=== PATIENT | female | born 1975 | race Caucasian/White ===

== ENCOUNTER 2017-09-27 00:51 | Emergency (ER) | payer MEDICAID ==
[~2017-09-27] VITALS: Ht 172.7 cm; Wt 63.6 kg
[~2017-09-27 00:51] MED LIST: CLON0.5T4 PO; HYDR-569 PO; IBUP-2264 PO; PER10325T PO
[2017-09-27 00:53] VITALS: BP 115/73
[2017-09-27] MEDS ORDERED: HYDROcodone/acetaminophen 10/325mg tab PO ONE (01:55)
[2017-09-27] MEDS ORDERED: IBUP-1984 PO (01:56)
[2017-09-27] MEDS ORDERED: HYDR-3965 PO (01:56)
== END 2017-09-27 02:31 | disposition home or self-care (01) ==
LOC: ER 00:52
DX: M25.532 Pain in left wrist (principal); Z98.890 Other specified postprocedural states; F12.10 Cannabis abuse, uncomplicated; Z88.1 Allergy status to other antibiotic agents; Z88.8 Allergy status to other drugs, medicaments and biological substances; X58.XXXA Exposure to other specified factors, initial encounter; Y93.89 Activity, other specified; Y92.89 Other specified places as the place of occurrence of the external cause; Y99.8 Other external cause status
CPT/HCPCS: 73110; 99284

== ENCOUNTER 2018-01-21 07:27 | Emergency (ER) | payer MEDICAID ==
[~2018-01-21] VITALS: Ht 167.6 cm; Wt 60.0 kg
[~2018-01-21 07:27] MED LIST changes: +CLON0.5T12 PO; -CLON0.5T4 PO
[2018-01-21 08:04] LABS: PREOP URINE HCG NEGATIVE (NEGATIVE)
[2018-01-21] MEDS ORDERED: normal saline 1000ML IV soln IV ONE (08:05)
[2018-01-21 08:11] LABS: CLARITY,URINE SLIGHTLY CLOUDY (Clear); COLOR,URINE YELLOW (Yellow); GLUCOSE, URINE NEGATIVE (Neg); KETONES,URINE NEGATIVE (Neg); LEUKOCYTE ESTERASE ,URINE TRACE (Neg); NITRITES, URINE NEGATIVE (Neg); OCCULT BLOOD,URINE NEGATIVE (Neg); PROTEIN,URINE TRACE mg/dl (Neg); UROBILINOGEN,URINE 0.2 E.U/dL (0.2-1.0)
[2018-01-21 08:22] VITALS: BP 114/79
[2018-01-21 08:23] LABS: BASOPHILS % (AUTO) 0.3 % (0-1); EOSINOPHILS # (AUTO) 0.1 X10'3 (0-0.9); EOSINOPHILS % (AUTO) 0.8 % (0-6); HEMATOCRIT 40.8 % (35.0-45.0); HEMOGLOBIN 13.9 g/dl (12.0-16.0); LYMPHOCYTES # (AUTO) 1.2 X10'3 (1.1-4.8); LYMPHOCYTES % (AUTO) 13.2 % (21-51); MEAN CORPUSCULAR HEMOGLOBIN 30.1 PG (27.0-31.0); MEAN CORPUSCULAR VOLUME 88.4 FL (78-98); MEAN PLATELET VOLUME 7.9 FL (7.4-10.4); MONOCYTES # (AUTO) 0.5 X10'3 (0-0.9); MONOCYTES % (AUTO) 5.5 % (2-12); NEUTROPHILS # (AUTO) 7.1 X10'3 (1.8-7.7); NEUTROPHILS % (AUTO) 80.2 % (42-75); PLATELET COUNT 254 X10'3 (140-440); RED BLOOD COUNT 4.62 X10'6 (4.20-5.60); RED CELL DISTRIBUTION WIDTH 14.1 % (11.5-14.5); WHITE BLOOD COUNT 8.8 X10'3 (4.5-11.0)
[2018-01-21 08:23] LABS: UA COLLECTION TYPE CLN CATCH MIDSTREAM
[2018-01-21 08:25] LABS: WBC,URINE 20-30 /HPF (0-4)
[2018-01-21 08:26] LABS: BACTERIA,URINE 2+ /HPF (Neg); MUCUS STRANDS MODERATE /LPF (Neg); RBC,URINE 0-2 /HPF (0-2); SQUAMOUS EPITHELIAL CELL,UR MANY /LPF (FEW); WBC CLUMPS,URINE FEW /HPF (NEGATIVE)
[2018-01-21 08:40] LABS: ALANINE AMINOTRANSFERASE 20 U/L (12-78); ALBUMIN 3.2 G/DL (3.4-5.0); ALBUMIN/GLOBULIN RATIO 0.9 (1.1-1.5); ALKALINE PHOSPHATASE 70 IU/L (46-116); ANION GAP 7 (8-16); ASPARTATE AMINO TRANSFERASE 12 U/L (10-37); BILIRUBIN,TOTAL 0.2 MG/DL (0.1-1.0); BLOOD UREA NITROGEN 6 MG/DL (7-18); CALCIUM 8.4 MG/DL (8.5-10.1); CHLORIDE 98 MMOL/L (99-107); CREATININE 0.75 MG/DL (0.40-0.90); GLUCOSE 107 MG/DL (70-104); MAGNESIUM 1.6 MG/DL (1.5-2.4); POTASSIUM 3.5 MMOL/L (3.5-5.1); SODIUM 134 MMOL/L (135-145); TOTAL PROTEIN 6.8 G/DL (6.4-8.2); eGFR 85 ML/MIN
[2018-01-21] MEDS ORDERED: HYDR-569 PO (10:14)
[2018-01-21] MEDS ORDERED: IBUP-1984 PO (10:14)
[2018-01-21] MEDS ORDERED: ONDA4TAB6 PO (10:14)
== END 2018-01-21 10:37 | disposition home or self-care (01) ==
LOC: ER 07:27
DX: B34.9 Viral infection, unspecified (principal); F12.90 Cannabis use, unspecified, uncomplicated; F15.90 Other stimulant use, unspecified, uncomplicated; Z88.1 Allergy status to other antibiotic agents; Z88.8 Allergy status to other drugs, medicaments and biological substances; Z79.899 Other long term (current) drug therapy; Z98.890 Other specified postprocedural states
CPT/HCPCS: 36415; 70450; 71045; 80053; 81001; 81025; 83605; 83735; 84145; 85025; 87040; 93005; 96360; 96361; 99285; J7030

== ENCOUNTER 2018-01-28 00:09 | Emergency (ER) | payer MEDICAID ==
[~2018-01-28] VITALS: Ht 167.6 cm; Wt 61.8 kg
[~2018-01-28 00:09] MED LIST changes: +IBUP-1984 PO; +ONDA4TAB6 PO
[2018-01-28] MEDS ORDERED: ondansetron/PF 4mg/2ml inj IV ONE (01:20)
[2018-01-28] MEDS ORDERED: morphine 4 MG/ML inj SYRINge IV ONE (01:20)
[2018-01-28] MEDS ORDERED: iohexol 350MG/ML 100ml bottle IV ONE (01:27)
[2018-01-28 01:49] LABS: BASOPHILS % (AUTO) 0.2 % (0-1); EOSINOPHILS # (AUTO) 0.2 X10'3 (0-0.9); EOSINOPHILS % (AUTO) 1.7 % (0-6); HEMATOCRIT 39.6 % (35.0-45.0); LYMPHOCYTES # (AUTO) 2.5 X10'3 (1.1-4.8); LYMPHOCYTES % (AUTO) 18.5 % (21-51); MEAN CORPUSCULAR HGB CONC 32.8 % (33.0-36.5); MEAN CORPUSCULAR VOLUME 88.2 FL (78-98); MEAN PLATELET VOLUME 7.6 FL (7.4-10.4); MONOCYTES # (AUTO) 0.6 X10'3 (0-0.9); MONOCYTES % (AUTO) 4.8 % (2-12); NEUTROPHILS # (AUTO) 10.2 X10'3 (1.8-7.7); NEUTROPHILS % (AUTO) 74.8 % (42-75); PLATELET COUNT 411 X10'3 (140-440); RED BLOOD COUNT 4.48 X10'6 (4.20-5.60); RED CELL DISTRIBUTION WIDTH 13.4 % (11.5-14.5); WHITE BLOOD COUNT 13.5 X10'3 (4.5-11.0)
[2018-01-28 02:00] LABS: ALANINE AMINOTRANSFERASE 23 U/L (12-78); ALBUMIN 3.4 G/DL (3.4-5.0); ALBUMIN/GLOBULIN RATIO 0.8 (1.1-1.5); ALKALINE PHOSPHATASE 99 IU/L (46-116); ANION GAP 4 (8-16); ASPARTATE AMINO TRANSFERASE 14 U/L (10-37); BILIRUBIN,TOTAL 0.2 MG/DL (0.1-1.0); BLOOD UREA NITROGEN 14 MG/DL (7-18); BUN/CREATININE RATIO 16.7 (6.6-38.0); CALCIUM 8.7 MG/DL (8.5-10.1); CHLORIDE 102 MMOL/L (99-107); CREATININE 0.84 MG/DL (0.40-0.90); GLUCOSE 88 MG/DL (70-104); POTASSIUM 3.9 MMOL/L (3.5-5.1); SODIUM 136 MMOL/L (135-145); TOTAL CARBON DIOXIDE 29.9 MMOL/L (24-32); TOTAL PROTEIN 7.6 G/DL (6.4-8.2); eGFR 75 ML/MIN
[2018-01-28 02:57] LABS: URINE HCG NEGATIVE (NEG)
[2018-01-28] MEDS ORDERED: amoxicillin 250mg capsule PO ONE (03:50)
[2018-01-28] MEDS ORDERED: HYDROcodone/acetaminophen 10/325mg tab PO ONE (03:50)
[2018-01-28] MEDS ORDERED: HYDR-565 PO (03:57)
[2018-01-28] MEDS ORDERED: AMOX500C2 PO (03:57)
[2018-01-28] MEDS ORDERED: IBUP-1986 PO (03:57)
[2018-01-28 04:05] VITALS: BP 122/79
[2018-01-29] MEDS ORDERED: AMOX-422 PO (18:14)
[2018-01-29] MEDS ORDERED: HYDR-565 PO (18:14)
[2018-01-29] MEDS ORDERED: CLIN300C3 PO (18:19)
== END 2018-01-28 04:07 | disposition home or self-care (01) ==
LOC: ER 00:10
DX: L03.211 Cellulitis of face (principal); K04.7 Periapical abscess without sinus; F12.90 Cannabis use, unspecified, uncomplicated; F15.90 Other stimulant use, unspecified, uncomplicated; F17.200 Nicotine dependence, unspecified, uncomplicated; Z98.890 Other specified postprocedural states; Z88.1 Allergy status to other antibiotic agents; Z88.8 Allergy status to other drugs, medicaments and biological substances
CPT/HCPCS: 36415; 70491; 80053; 81025; 83605; 84145; 85025; 87040; 96374; 96375; 99285; J2270; J2405; J7030; Q9967

== ENCOUNTER 2018-01-29 12:54 | Emergency (ER) | payer MEDICAID ==
[~2018-01-29] VITALS: Ht 167.6 cm; Wt 61.4 kg
[~2018-01-29 12:54] MED LIST changes: +AMOX500C2 PO; +HYDR-565 PO; +IBUP-1986 PO
[2018-01-29] MEDS ORDERED: HYDROcodone/acetaminophen 10/325mg tab PO ONE (13:25)
[2018-01-29] MEDS ORDERED: ondansetron/PF 4mg/2ml inj IV ONE (13:25)
[2018-01-29] MEDS ORDERED: morphine 4 MG/ML inj SYRINge IV ONE (13:25)
[2018-01-29] MEDS ORDERED: piperacillin/tazo 3.375gm/50ml 50 ML IV ONE (13:25)
[2018-01-29 13:54] LABS: BASOPHILS # (AUTO) 0.1 X10'3 (0-0.2); BASOPHILS % (AUTO) 0.5 % (0-1); EOSINOPHILS # (AUTO) 0.3 X10'3 (0-0.9); EOSINOPHILS % (AUTO) 2.2 % (0-6); HEMATOCRIT 35.8 % (35.0-45.0); HEMOGLOBIN 12.3 g/dl (12.0-16.0); LYMPHOCYTES # (AUTO) 1.9 X10'3 (1.1-4.8); LYMPHOCYTES % (AUTO) 15.3 % (21-51); MEAN CORPUSCULAR HEMOGLOBIN 30.3 PG (27.0-31.0); MEAN CORPUSCULAR HGB CONC 34.5 % (33.0-36.5); MEAN CORPUSCULAR VOLUME 87.7 FL (78-98); MEAN PLATELET VOLUME 7.3 FL (7.4-10.4); MONOCYTES # (AUTO) 0.5 X10'3 (0-0.9); MONOCYTES % (AUTO) 4.2 % (2-12); NEUTROPHILS # (AUTO) 9.8 X10'3 (1.8-7.7); NEUTROPHILS % (AUTO) 77.8 % (42-75); PLATELET COUNT 376 X10'3 (140-440); RED BLOOD COUNT 4.08 X10'6 (4.20-5.60); RED CELL DISTRIBUTION WIDTH 13.7 % (11.5-14.5); WHITE BLOOD COUNT 12.6 X10'3 (4.5-11.0)
[2018-01-29 14:09] LABS: ALANINE AMINOTRANSFERASE 19 U/L (12-78); ALBUMIN 3.2 G/DL (3.4-5.0); ALBUMIN/GLOBULIN RATIO 0.8 (1.1-1.5); ALKALINE PHOSPHATASE 83 IU/L (46-116); ANION GAP 8 (8-16); ASPARTATE AMINO TRANSFERASE 13 U/L (10-37); BILIRUBIN,TOTAL 0.2 MG/DL (0.1-1.0); BLOOD UREA NITROGEN 7 MG/DL (7-18); BUN/CREATININE RATIO 11.1 (6.6-38.0); CALCIUM 8.8 MG/DL (8.5-10.1); CHLORIDE 99 MMOL/L (99-107); CREATININE 0.63 MG/DL (0.40-0.90); GLUCOSE 98 MG/DL (70-104); POTASSIUM 3.8 MMOL/L (3.5-5.1); SODIUM 135 MMOL/L (135-145); TOTAL PROTEIN 7.2 G/DL (6.4-8.2); eGFR > 90 ML/MIN
[2018-01-29] MEDS ORDERED: iohexol 300mg/ml 100ml inj. ONE (14:27)
[2018-01-29] MEDS ORDERED: BUPIVAcaine/PF 2.5 mg/ml (0.25%) 30ml vial IJ ONE (16:50)
[2018-01-29] MEDS ORDERED: LIDOcaine 1.5% w/epinephrine 1:200,000 5ml ampul IJ ONE ×2 (16:50→18:30)
[2018-01-29] MEDS ORDERED: BUPIVAcaine 2.5mg/ml inj 50ml vial (contains preservative) IJ ONE (17:25)
[2018-01-29 17:26] VITALS: BP 114/76
[2018-01-29] MEDS ORDERED: HYDR-565 PO (18:14)
[2018-01-29] MEDS ORDERED: AMOX-422 PO (18:14)
[2018-01-29] MEDS ORDERED: CLIN300C3 PO (18:19)
== END 2018-01-29 18:50 | disposition home or self-care (01) ==
LOC: ER 12:54
DX: K04.7 Periapical abscess without sinus (principal); K02.9 Dental caries, unspecified; F12.90 Cannabis use, unspecified, uncomplicated; F15.90 Other stimulant use, unspecified, uncomplicated; F17.200 Nicotine dependence, unspecified, uncomplicated; Z98.890 Other specified postprocedural states; Z88.1 Allergy status to other antibiotic agents; Z88.8 Allergy status to other drugs, medicaments and biological substances
CPT/HCPCS: 36415; 41800; 70487; 80053; 85025; 96365; 96375; 99285; A6449; J2270; J2405; J3490; J7030; Q9967

== ENCOUNTER 2018-06-28 03:11 | Emergency (ER) | payer MEDICAID, OTHER ==
[~2018-06-28] VITALS: Ht 172.7 cm; Wt 60.0 kg
[~2018-06-28 03:11] MED LIST changes: -AMOX500C2 PO; +CLIN300C3 PO; +HYDR-4383 PO; -HYDR-565 PO; -HYDR-569 PO; -IBUP-1984 PO
[2018-06-28 03:13] VITALS: BP 121/74
[2018-06-28] MEDS ORDERED: ondansetron 4mg rapidly disintigrating tab PO ONE (03:55)
[2018-06-28] MEDS ORDERED: ketorolac trometh inj. 60 MG/2 ML VIAL IM ONE (03:55)
[2018-06-28] MEDS ORDERED: HYDROcodone/acetaminophen 5mg/325mg tablet PO ONE (03:55)
[2018-06-28] MEDS ORDERED: clindamycin 150mg capsule PO ONE (04:20)
[2018-06-28] MEDS ORDERED: CLIN150C8 PO (04:20)
== END 2018-06-28 04:32 | disposition home or self-care (01) ==
LOC: ER 03:11
DX: N75.1 Abscess of Bartholin's gland (principal); F12.90 Cannabis use, unspecified, uncomplicated; F15.90 Other stimulant use, unspecified, uncomplicated; Z88.1 Allergy status to other antibiotic agents; Z88.8 Allergy status to other drugs, medicaments and biological substances; Z79.899 Other long term (current) drug therapy
CPT/HCPCS: 56420; 96372; 99284; J1885

== ENCOUNTER 2019-01-14 07:59 | Emergency (ER) | payer MEDICAID ==
[~2019-01-14] VITALS: Ht 170.2 cm; Wt 59.1 kg
[~2019-01-14 07:59] MED LIST changes: +CLIN150C8 PO; -IBUP-2264 PO; +IBUP-2697 PO
[2019-01-14 08:08] VITALS: BP 138/80
[2019-01-14] MEDS ORDERED: HYDROcodone/acetaminophen 10/325mg tab PO ONE (08:25)
[2019-01-14] MEDS ORDERED: LIDOcaine 1% w/epiNEPHrine 1:200,000 30ml vial IM ONE (09:10)
[2019-01-14] MEDS ORDERED: HYDR-4353 PO (09:47)
[2019-01-14] MEDS ORDERED: AMOX-422 PO (09:47)
[2019-01-14] MEDS ORDERED: amox tr/potassium clavulanate 875/125mg TAB PO ONE (09:50)
== END 2019-01-14 09:58 | disposition home or self-care (01) ==
LOC: ER 08:00
DX: L02.611 Cutaneous abscess of right foot (principal); F17.200 Nicotine dependence, unspecified, uncomplicated; F12.90 Cannabis use, unspecified, uncomplicated; F15.90 Other stimulant use, unspecified, uncomplicated; Z98.890 Other specified postprocedural states; Z88.1 Allergy status to other antibiotic agents; Z88.8 Allergy status to other drugs, medicaments and biological substances; Z79.2 Long term (current) use of antibiotics; Z79.899 Other long term (current) drug therapy
CPT/HCPCS: 10060; 73630; 99283; 99284

== ENCOUNTER 2019-07-09 00:14 | Emergency (ER) | payer MEDICAID ==
[~2019-07-09] VITALS: Ht 172.7 cm; Wt 65.9 kg
[~2019-07-09 00:14] MED LIST changes: -CLON0.5T12 PO; +CLON0.5T4 PO
[2019-07-09] MEDS ORDERED: azithromycin 250mg tablet PO ONE (02:30)
[2019-07-09] MEDS ORDERED: oseltamivir phos 75mg capsule PO ONE (02:30)
[2019-07-09] MEDS ORDERED: TAM75C PO (02:41)
[2019-07-09] MEDS ORDERED: AZIT-63 PO (02:41)
[2019-07-09 03:04] VITALS: BP 125/80
== END 2019-07-09 03:05 | disposition home or self-care (01) ==
LOC: ER 00:15
DX: J32.9 Chronic sinusitis, unspecified (principal); J11.1 Influenza due to unidentified influenza virus with other respiratory manifestations; F12.90 Cannabis use, unspecified, uncomplicated; F15.90 Other stimulant use, unspecified, uncomplicated; Z98.890 Other specified postprocedural states; Z88.1 Allergy status to other antibiotic agents; Z88.8 Allergy status to other drugs, medicaments and biological substances; Z79.899 Other long term (current) drug therapy
CPT/HCPCS: 99283

== ENCOUNTER 2019-07-29 00:23 | Emergency (ER) | payer MEDICAID, OTHER ==
[~2019-07-29] VITALS: Ht 172.7 cm; Wt 63.6 kg
[~2019-07-29 00:23] MED LIST changes: +AZIT-63 PO
[2019-07-29] MEDS ORDERED: ondansetron 4mg/5ml UD cup PO ONE (01:20)
[2019-07-29] MEDS ORDERED: pseudoephedrine 30mg tablet PO ONE (01:20)
[2019-07-29] MEDS ORDERED: benzonatate 100mg capsule PO ONE (01:20)
[2019-07-29 02:12] VITALS: BP 127/78
[2019-07-29] MEDS ORDERED: BENZ-16 PO (02:26)
== END 2019-07-29 02:43 | disposition home or self-care (01) ==
LOC: ER 00:24
DX: J06.9 Acute upper respiratory infection, unspecified (principal); R05 Cough; M79.18 Myalgia, other site; F12.90 Cannabis use, unspecified, uncomplicated; F15.90 Other stimulant use, unspecified, uncomplicated; F17.200 Nicotine dependence, unspecified, uncomplicated; Z98.890 Other specified postprocedural states; Z88.1 Allergy status to other antibiotic agents; Z88.8 Allergy status to other drugs, medicaments and biological substances; Z79.2 Long term (current) use of antibiotics
CPT/HCPCS: 87502; 87503; 99284

== ENCOUNTER 2019-08-12 13:27 | Emergency (ER) | payer MEDICAID, OTHER ==
[~2019-08-12] VITALS: Ht 172.7 cm; Wt 63.6 kg
[~2019-08-12 13:27] MED LIST changes: -AZIT-63 PO; +BENZ-16 PO
[2019-08-12] MEDS ORDERED: HYDROcodone/acetaminophen 10/325mg tab PO STA (13:39)
[2019-08-12] MEDS ORDERED: CEPH-571 PO (15:11)
[2019-08-12] MEDS ORDERED: HYDROcodone/acetaminophen 5mg/325mg tablet PO ONE (15:15)
[2019-08-12] MEDS ORDERED: TETanus/Pertussis (Acell)/Diphther VAC/PF (Tdap-Adult) 0.5ml syringe IMVAC ONE (15:15)
[2019-08-12] MEDS ORDERED: NAPR-56 PO (15:48)
[2019-08-12 16:05] VITALS: BP 122/78
== END 2019-08-12 16:06 | disposition home or self-care (01) ==
LOC: ER 13:27
DX: S81.811A Laceration without foreign body, right lower leg, initial encounter (principal); W01.0XXA Fall on same level from slipping, tripping and stumbling without subsequent striking against object, initial encounter; Y93.89 Activity, other specified; Y92.89 Other specified places as the place of occurrence of the external cause; Y99.8 Other external cause status; Z85.41 Personal history of malignant neoplasm of cervix uteri; Z85.89 Personal history of malignant neoplasm of other organs and systems; Q89.9 Congenital malformation, unspecified; F12.90 Cannabis use, unspecified, uncomplicated; F15.10 Other stimulant abuse, uncomplicated; Z98.890 Other specified postprocedural states
CPT/HCPCS: 12001; 73590; 90471; 90715; 99283

== ENCOUNTER 2019-11-21 15:14 | Emergency (ER) | payer MEDICAID ==
[~2019-11-21] VITALS: Ht 170.2 cm; Wt 63.6 kg
[~2019-11-21 15:14] MED LIST changes: -BENZ-16 PO; +CEPH-571 PO
--- NOTE | 2019-11-21 16:36 | NUR ---
pt stated smoked meth and marijuana 2 days ago.
[2019-11-21] MEDS ORDERED: proCHLORperazine 10 MG/2 ml inj IV ONE (16:40)
[2019-11-21] MEDS ORDERED: normal saline 1000ML IV soln IVB ONE (16:40)
[2019-11-21] MEDS ORDERED: ketorolac trometh. 30mg/ml inj. IV ONE (16:40)
[2019-11-21] MEDS ORDERED: diphenhydrAMINE 50 mg/ml inj IV ONE (16:40)
[2019-11-21 18:05] VITALS: BP 94/54
== END 2019-11-21 19:26 | disposition home or self-care (01) ==
LOC: ER 15:17
DX: R51 Headache (principal); R42 Dizziness and giddiness; F12.90 Cannabis use, unspecified, uncomplicated; F15.90 Other stimulant use, unspecified, uncomplicated; Z98.890 Other specified postprocedural states; Z79.2 Long term (current) use of antibiotics; Z88.8 Allergy status to other drugs, medicaments and biological substances; Z79.899 Other long term (current) drug therapy
CPT/HCPCS: 93005; 96374; 96375; 99284; J0780; J1200; J1885; J7030

== ENCOUNTER 2019-11-23 17:17 | Emergency (ER) | payer MEDICAID ==
[~2019-11-23] VITALS: Ht 170.2 cm; Wt 64.5 kg
[2019-11-23] MEDS ORDERED: normal saline 1000ML IV soln IVB ONE ×2 (18:00→18:55)
[2019-11-23] MEDS ORDERED: metoclopramide 5 mg/ml inj IV ONE (18:00)
[2019-11-23] MEDS ORDERED: diphenhydrAMINE 50 mg/ml inj IV ONE (18:00)
[2019-11-23] MEDS ORDERED: ketorolac trometh. 30mg/ml inj. IV ONE (18:00)
[2019-11-23 18:32] LABS: BASOPHILS % (AUTO) 0.4 % (0-1); EOSINOPHILS # (AUTO) 0.1 X10'3 (0-0.9); EOSINOPHILS % (AUTO) 0.6 % (0-6); HEMATOCRIT 42.6 % (35.0-45.0); HEMOGLOBIN 14.5 g/dl (12.0-16.0); LYMPHOCYTES # (AUTO) 2.2 X10'3 (1.1-4.8); LYMPHOCYTES % (AUTO) 22.3 % (21-51); MEAN CORPUSCULAR HEMOGLOBIN 30.3 PG (27.0-31.0); MEAN CORPUSCULAR HGB CONC 34.1 g/dL (33.0-36.5); MEAN CORPUSCULAR VOLUME 89.1 FL (78-98); MEAN PLATELET VOLUME 7.8 FL (7.4-10.4); MONOCYTES # (AUTO) 0.3 X10'3 (0-0.9); MONOCYTES % (AUTO) 3.5 % (2-12); NEUTROPHILS # (AUTO) 7.1 X10'3 (1.8-7.7); NEUTROPHILS % (AUTO) 73.2 % (42-75); PLATELET COUNT 356 X10'3 (140-440); RED BLOOD COUNT 4.79 X10'6 (4.20-5.60); RED CELL DISTRIBUTION WIDTH 14.2 % (11.5-14.5); WHITE BLOOD COUNT 9.7 X10'3 (4.5-11.0)
[2019-11-23 18:38] LABS: ALANINE AMINOTRANSFERASE 17 U/L (12-78); ALBUMIN 3.4 G/DL (3.4-5.0); ALBUMIN/GLOBULIN RATIO 1.1 (1.1-1.5); ALKALINE PHOSPHATASE 78 IU/L (46-116); ANION GAP 7 (8-16); ASPARTATE AMINO TRANSFERASE 12 U/L (10-37); BILIRUBIN,TOTAL 0.2 MG/DL (0.1-1.0); BLOOD UREA NITROGEN 7 MG/DL (7-18); CALCIUM 7.9 MG/DL (8.5-10.1); CHLORIDE 107 MMOL/L (99-107); CREATININE 0.88 MG/DL (0.40-0.90); GLUCOSE 110 MG/DL (70-104); MAGNESIUM 1.8 MG/DL (1.5-2.4); POTASSIUM 4.3 MMOL/L (3.5-5.1); SODIUM 141 MMOL/L (135-145); TOTAL CARBON DIOXIDE 27.4 MMOL/L (24-32); TOTAL PROTEIN 6.5 G/DL (6.4-8.2); eGFR 70 ML/MIN
[2019-11-23] MEDS ORDERED: haloperidol lactate 5mg/ml inj IM ONE (18:50)
[2019-11-23] MEDS ORDERED: morphine 4 MG/ML inj SYRINge IV ONE (18:50)
[2019-11-23] MEDS ORDERED: proCHLORperazine 10 MG/2 ml inj IV ONE (18:50)
[2019-11-23 19:15] LABS: ETHANOL < 0.010 GM/DL (0.0-0.010)
--- NOTE | 2019-11-23 20:11 | NUR ---
up to the bathroom w/o problem
[2019-11-23 20:30] LABS: CLARITY,URINE SLIGHTLY CLOUDY (Clear); COLOR,URINE YELLOW (Yellow); GLUCOSE, URINE NEGATIVE (Neg); KETONES,URINE NEGATIVE (Neg); LEUKOCYTE ESTERASE ,URINE SMALL (Neg); NITRITES, URINE NEGATIVE (Neg); OCCULT BLOOD,URINE SMALL (Neg); PROTEIN,URINE NEGATIVE (Neg); UROBILINOGEN,URINE 0.2 E.U/dL (0.2-1.0)
[2019-11-23 20:31] LABS: UA COLLECTION TYPE NON-SPECIFIED; URINE HCG NEGATIVE (NEG)
[2019-11-23 20:34] LABS: RBC,URINE 0-2 /HPF (0-2); WBC,URINE 0-4 /HPF (0-4)
[2019-11-23 20:35] LABS: BACTERIA,URINE NONE SEEN /HPF (Neg); SQUAMOUS EPITHELIAL CELL,UR FEW /LPF (FEW)
[2019-11-23 20:43] LABS: URINE AMPHETAMINE SCREEN POSITIVE (Neg); URINE BARBITUATE SCREEN NEGATIVE (Neg); URINE BENZODIAZEPINES SCREEN NEGATIVE (Neg); URINE CANNABINOID SCREEN NEGATIVE (Neg); URINE COCAINE SCREEN NEGATIVE (Neg); URINE METHADONE SCREEN NEGATIVE (Neg); URINE OPIATE SCREEN POSITIVE (Neg); URINE PHENCYCLIDINE SCREEN NEGATIVE (Neg)
[2019-11-23 21:32] VITALS: BP 116/73
== END 2019-11-23 21:38 | disposition home or self-care (01) ==
LOC: ER 17:17
DX: G43.909 Migraine, unspecified, not intractable, without status migrainosus (principal); R42 Dizziness and giddiness; F19.10 Other psychoactive substance abuse, uncomplicated; F12.90 Cannabis use, unspecified, uncomplicated; F15.90 Other stimulant use, unspecified, uncomplicated; Z98.890 Other specified postprocedural states; Z88.1 Allergy status to other antibiotic agents; Z88.8 Allergy status to other drugs, medicaments and biological substances; Z79.2 Long term (current) use of antibiotics; Z79.899 Other long term (current) drug therapy
CPT/HCPCS: 36415; 80053; 80305; 80320; 81001; 81025; 83735; 85025; 87088; 93005; 96361; 96372; 96374; 96375; 99284; J0780; J1200; J1630; J1885; J2270; J2765; J7030; 96376

== ENCOUNTER 2020-02-04 00:22 | Emergency (ER) | payer MEDICAID ==
[~2020-02-04] VITALS: Ht 172.7 cm; Wt 63.6 kg
--- NOTE | 2020-02-04 01:03 | NUR ---
Breaking primary RN, pt is awaiting CT, blood and urine obtained
[2020-02-04 01:04] LABS: URINE HCG NEGATIVE (NEG)
[2020-02-04 01:05] LABS: BASOPHILS # (AUTO) 0.1 X10'3 (0-0.2); BASOPHILS % (AUTO) 0.7 % (0-1); CLARITY,URINE CLOUDY (Clear); COLOR,URINE YELLOW (Yellow); EOSINOPHILS # (AUTO) 0.1 X10'3 (0-0.9); EOSINOPHILS % (AUTO) 1.5 % (0-6); GLUCOSE, URINE NEGATIVE (Neg); HEMATOCRIT 38.1 % (35.0-45.0); HEMOGLOBIN 12.9 g/dl (12.0-16.0); KETONES,URINE NEGATIVE (Neg); LEUKOCYTE ESTERASE ,URINE TRACE (Neg); LYMPHOCYTES # (AUTO) 1.9 X10'3 (1.1-4.8); LYMPHOCYTES % (AUTO) 25.3 % (21-51); MEAN CORPUSCULAR HEMOGLOBIN 30.3 PG (27.0-31.0); MEAN CORPUSCULAR HGB CONC 33.7 g/dL (33.0-36.5); MEAN CORPUSCULAR VOLUME 89.9 FL (78-98); MEAN PLATELET VOLUME 7.7 FL (7.4-10.4); MONOCYTES # (AUTO) 0.4 X10'3 (0-0.9); MONOCYTES % (AUTO) 5.6 % (2-12); NEUTROPHILS # (AUTO) 5.1 X10'3 (1.8-7.7); NEUTROPHILS % (AUTO) 66.9 % (42-75); NITRITES, URINE POSITIVE (Neg); OCCULT BLOOD,URINE LARGE (Neg); PH,URINE 6.5 (4.8-8.0); PLATELET COUNT 244 X10'3 (140-440); PROTEIN,URINE 100 mg/dl (Neg); RED BLOOD COUNT 4.24 X10'6 (4.20-5.60); RED CELL DISTRIBUTION WIDTH 13.8 % (11.5-14.5); UROBILINOGEN,URINE 0.2 E.U/dL (0.2-1.0); WHITE BLOOD COUNT 7.7 X10'3 (4.5-11.0)
[2020-02-04 01:09] LABS: UA COLLECTION TYPE CLN CATCH MIDSTREAM
[2020-02-04 01:13] LABS: BACTERIA,URINE 1+ /HPF (Neg); SQUAMOUS EPITHELIAL CELL,UR MODERATE /LPF (FEW); WBC,URINE 20-30 /HPF (0-4)
[2020-02-04 01:14] LABS: ALANINE AMINOTRANSFERASE 16 U/L (12-78); ALKALINE PHOSPHATASE 66 IU/L (46-116); ANION GAP 7 (8-16); ASPARTATE AMINO TRANSFERASE 7 U/L (10-37); BILIRUBIN,TOTAL 0.1 MG/DL (0.1-1.0); BLOOD UREA NITROGEN 12 MG/DL (7-18); BUN/CREATININE RATIO 14.6 (6.6-38.0); CALCIUM 7.4 MG/DL (8.5-10.1); CHLORIDE 106 MMOL/L (99-107); CREATININE 0.82 MG/DL (0.40-0.90); GLUCOSE 101 MG/DL (70-104); LIPASE 74 U/L (73-393); SODIUM 139 MMOL/L (135-145); TOTAL CARBON DIOXIDE 26.3 MMOL/L (24-32); TOTAL PROTEIN 6.1 G/DL (6.4-8.2); eGFR 76 ML/MIN
[2020-02-04] MEDS ORDERED: CefTRIAXone/D5W-Rocephin 1gm 50 ML IV ONE (01:15)
[2020-02-04] MEDS ORDERED: CEPH500C5 PO (01:52)
[2020-02-04] MEDS ORDERED: ONDA8TAB13 PO (01:52)
[2020-02-04] MEDS ORDERED: ondansetron/PF 4mg/2ml inj IV ONE (01:55)
[2020-02-04] MEDS ORDERED: morphine 4 MG/ML inj SYRINge IV PRN (01:55)
[2020-02-04 02:02] VITALS: BP 121/7
[2020-02-04] MEDS ORDERED: ACET-3067 PO (02:09)
== END 2020-02-04 02:03 | disposition home or self-care (01) ==
LOC: ER 00:23
DX: N10 Acute pyelonephritis (principal); M54.5 Low back pain; R11.0 Nausea; F12.90 Cannabis use, unspecified, uncomplicated; F15.90 Other stimulant use, unspecified, uncomplicated; Z85.41 Personal history of malignant neoplasm of cervix uteri; Z98.890 Other specified postprocedural states; Z88.1 Allergy status to other antibiotic agents; Z88.8 Allergy status to other drugs, medicaments and biological substances; Z79.2 Long term (current) use of antibiotics; Z79.899 Other long term (current) drug therapy
CPT/HCPCS: 36415; 74176; 80053; 81001; 81025; 83690; 85025; 87077; 87088; 87186; 96365; 96375; 99284; J0696; J2270; J2405

== ENCOUNTER 2020-07-13 20:53 | Emergency (ER) | payer MEDICAID ==
[~2020-07-13] VITALS: Ht 172.7 cm; Wt 68.2 kg
[~2020-07-13 20:53] MED LIST changes: +ONDA8TAB13 PO
[2020-07-13 21:08] VITALS: BP 120/85
[2020-07-13] MEDS ORDERED: LIDOcaine 1% W/epiNEPHrine 1:200,000 10ml vial IJ ONE (21:55)
[2020-07-13] MEDS ORDERED: HYDROcodone/acetaminophen 5mg/325mg tablet PO ONE (22:50)
[2020-07-13] MEDS ORDERED: ondansetron 4mg rapidly disintigrating tab PO ONE (22:50)
[2020-07-13] MEDS ORDERED: BACDS PO (22:51)
[2020-07-13] MEDS ORDERED: ONDA4TAB6 PO (23:11)
[2020-07-13] MEDS ORDERED: HYDR-3965 PO (23:11)
== END 2020-07-13 23:28 | disposition home or self-care (01) ==
LOC: ER 20:54
DX: N75.0 Cyst of Bartholin's gland (principal); F12.90 Cannabis use, unspecified, uncomplicated; F15.90 Other stimulant use, unspecified, uncomplicated; Z87.410 Personal history of cervical dysplasia; Z88.1 Allergy status to other antibiotic agents; Z88.8 Allergy status to other drugs, medicaments and biological substances; Z79.2 Long term (current) use of antibiotics; Z79.899 Other long term (current) drug therapy
CPT/HCPCS: 56420; 99283; 99284

== ENCOUNTER 2020-07-20 17:44 | Emergency (ER) | payer MEDICAID ==
[~2020-07-20] VITALS: Ht 172.7 cm; Wt 68.2 kg
[~2020-07-20 17:44] MED LIST changes: +BACDS PO
[2020-07-20 18:03] VITALS: BP 121/82
== END 2020-07-20 20:03 | disposition left against medical advice (07) ==
LOC: ER 17:44
DX: Z48.00 Encounter for change or removal of nonsurgical wound dressing (principal); Z53.21 Procedure and treatment not carried out due to patient leaving prior to being seen by health care provider

== ENCOUNTER 2021-01-10 14:31 | Emergency (ER) | payer MEDICAID ==
[~2021-01-10] VITALS: Ht 172.7 cm; Wt 68.2 kg
[~2021-01-10 14:31] MED LIST changes: -BACDS PO
[2021-01-10 14:54] VITALS: BP 134/88
[2021-01-10] MEDS ORDERED: BENZ-38 PO (15:42)
[2021-01-10] MEDS ORDERED: DEXA4TAB67 PO (15:42)
[2021-01-10] MEDS ORDERED: ALBU6.7H9 INH (15:42)
== END 2021-01-10 16:00 | disposition home or self-care (01) ==
LOC: ER 14:31
DX: U07.1 COVID-19 (principal); R11.0 Nausea; R05 Cough; R06.02 Shortness of breath; R51.9 Headache, unspecified; F12.90 Cannabis use, unspecified, uncomplicated; F15.90 Other stimulant use, unspecified, uncomplicated; Z85.41 Personal history of malignant neoplasm of cervix uteri; Z98.890 Other specified postprocedural states; Z88.1 Allergy status to other antibiotic agents; Z88.8 Allergy status to other drugs, medicaments and biological substances; Z79.2 Long term (current) use of antibiotics; Z79.899 Other long term (current) drug therapy
CPT/HCPCS: 71045; 87635; 99284; C9803

== ENCOUNTER 2021-01-18 21:15 | Emergency (ER) | payer MEDICAID ==
[~2021-01-18] VITALS: Ht 172.7 cm; Wt 68.2 kg
[~2021-01-18 21:15] MED LIST changes: +ALBU6.7H9 INH; +BENZ-38 PO; +DEXA4TAB67 PO
[2021-01-18 21:30] VITALS: BP 116/93
[2021-01-18] MEDS ORDERED: dexamethasone 4mg tablet PO ONE (23:10)
[2021-01-18] MEDS ORDERED: azithromycin 250mg tablet PO ONE (23:25)
[2021-01-18] MEDS ORDERED: DEXA6TAB6 PO (23:30)
[2021-01-18] MEDS ORDERED: AZIT250T PO (23:30)
[2021-01-18] MEDS ORDERED: BENZ-16 PO (23:39)
[2021-01-18] MEDS ORDERED: benzonatate 100mg capsule PO ONE (23:40)
== END 2021-01-18 23:42 | disposition home or self-care (01) ==
LOC: ER 21:16
DX: U07.1 COVID-19 (principal); J18.9 Pneumonia, unspecified organism; R06.02 Shortness of breath; F12.90 Cannabis use, unspecified, uncomplicated; F15.90 Other stimulant use, unspecified, uncomplicated; Z85.41 Personal history of malignant neoplasm of cervix uteri; Z98.890 Other specified postprocedural states; Z88.1 Allergy status to other antibiotic agents; Z88.8 Allergy status to other drugs, medicaments and biological substances; Z79.2 Long term (current) use of antibiotics; Z79.899 Other long term (current) drug therapy
CPT/HCPCS: 71045; 99283

== ENCOUNTER 2021-09-05 16:50 | Emergency (ER) | payer MEDICAID ==
[~2021-09-05] VITALS: Ht 172.7 cm; Wt 65.9 kg
[~2021-09-05 16:50] MED LIST changes: -BENZ-38 PO; +DEXA6TAB6 PO
[2021-09-05 17:10] VITALS: BP 129/90
[2021-09-05] MEDS ORDERED: NAPR-56 PO (17:16)
[2021-09-05] MEDS ORDERED: CEPH250T PO (17:16)
== END 2021-09-05 17:29 | disposition home or self-care (01) ==
LOC: ER 16:50
DX: K04.7 Periapical abscess without sinus (principal); F12.90 Cannabis use, unspecified, uncomplicated; F15.90 Other stimulant use, unspecified, uncomplicated; Z87.410 Personal history of cervical dysplasia; Z98.890 Other specified postprocedural states; Z88.1 Allergy status to other antibiotic agents; Z88.8 Allergy status to other drugs, medicaments and biological substances; Z79.2 Long term (current) use of antibiotics; Z79.899 Other long term (current) drug therapy
CPT/HCPCS: 99283

== ENCOUNTER 2022-03-14 16:01 | Emergency (ER) | payer MEDICAID ==
[~2022-03-14] VITALS: Ht 172.7 cm; Wt 63.6 kg
[~2022-03-14 16:01] MED LIST changes: +ALBU6.7H14 INH; -ALBU6.7H9 INH
[2022-03-14 17:06] VITALS: BP 136/84
[2022-03-14] MEDS ORDERED: NAPR-56 PO (20:01)
[2022-03-14] MEDS ORDERED: DICL20GE TOP (20:01)
== END 2022-03-14 20:36 | disposition home or self-care (01) ==
LOC: ER 16:02
DX: M77.8 Other enthesopathies, not elsewhere classified (principal); F17.200 Nicotine dependence, unspecified, uncomplicated; F12.90 Cannabis use, unspecified, uncomplicated; F15.20 Other stimulant dependence, uncomplicated; Z88.1 Allergy status to other antibiotic agents; Z88.8 Allergy status to other drugs, medicaments and biological substances
CPT/HCPCS: 73080; 99283

== ENCOUNTER 2022-03-25 14:25 | Emergency (ER) | payer MEDICAID ==
[~2022-03-25] VITALS: Ht 172.7 cm; Wt 63.6 kg
[~2022-03-25 14:25] MED LIST changes: +DICL20GE TOP; +NAPR-56 PO
[2022-03-25 14:44] VITALS: BP 134/97
[2022-03-25] MEDS ORDERED: TETRAcaine 0.5% ophthalmic drops 15ml EACHEYE ONE (15:25)
[2022-03-25] MEDS ORDERED: moxifloxacin 0.5% ophthalmic drops 3ml LEFTEYE ONE (17:59)
== END 2022-03-25 18:19 | disposition home or self-care (01) ==
LOC: ER 14:26
DX: T15.02XA Foreign body in cornea, left eye, initial encounter (principal); H57.12 Ocular pain, left eye; F12.90 Cannabis use, unspecified, uncomplicated; F15.90 Other stimulant use, unspecified, uncomplicated; Z85.41 Personal history of malignant neoplasm of cervix uteri; Z98.890 Other specified postprocedural states; Z88.1 Allergy status to other antibiotic agents; Z88.8 Allergy status to other drugs, medicaments and biological substances; Z79.2 Long term (current) use of antibiotics; Z79.899 Other long term (current) drug therapy; X58.XXXA Exposure to other specified factors, initial encounter; Y93.89 Activity, other specified; Y92.89 Other specified places as the place of occurrence of the external cause; Y99.8 Other external cause status
CPT/HCPCS: 65220; 99284; J7040

== ENCOUNTER 2022-05-20 02:24 | Emergency (ER) | payer MEDICAID ==
[~2022-05-20] VITALS: Ht 172.7 cm; Wt 63.6 kg
[~2022-05-20 02:24] MED LIST changes: -NAPR-56 PO
[2022-05-20 02:43] VITALS: BP 130/84
== END 2022-05-20 06:10 | disposition left against medical advice (07) ==
LOC: ER 02:25
DX: M79.10 Myalgia, unspecified site (principal); Z53.21 Procedure and treatment not carried out due to patient leaving prior to being seen by health care provider

== ENCOUNTER 2022-08-06 05:56 | Emergency (ER) | payer MEDICAID ==
[~2022-08-06] VITALS: Ht 172.7 cm; Wt 63.6 kg
[2022-08-06 06:04] VITALS: BP 164/91
[2022-08-06] MEDS ORDERED: diphenhydrAMINE 25mg capsule PO ONE (08:30)
[2022-08-06 08:40] LABS: BASOPHILS % (AUTO) 0.4 % (0-1); EOSINOPHILS # (AUTO) 0.1 X10'3 (0-0.9); EOSINOPHILS % (AUTO) 0.7 % (0-6); HEMATOCRIT 38.9 % (35.0-45.0); HEMOGLOBIN 13.1 g/dl (12.0-16.0); LYMPHOCYTES % (AUTO) 29.4 % (21-51); MEAN CORPUSCULAR HEMOGLOBIN 29.8 PG (27.0-31.0); MEAN CORPUSCULAR HGB CONC 33.6 g/dL (33.0-36.5); MEAN CORPUSCULAR VOLUME 88.7 FL (78-98); MEAN PLATELET VOLUME 7.7 FL (7.4-10.4); MONOCYTES # (AUTO) 0.5 X10'3 (0-0.9); MONOCYTES % (AUTO) 6.5 % (2-12); NEUTROPHILS # (AUTO) 4.4 X10'3 (1.8-7.7); PLATELET COUNT 324 X10'3 (140-440); RED BLOOD COUNT 4.39 X10'6 (4.20-5.60); RED CELL DISTRIBUTION WIDTH 14.1 % (11.5-14.5); WHITE BLOOD COUNT 6.9 X10'3 (4.5-11.0)
[2022-08-06 09:10] LABS: ALANINE AMINOTRANSFERASE 18 U/L (12-78); ALBUMIN 3.8 G/DL (3.4-5.0); ALBUMIN/GLOBULIN RATIO 1.2 (1.1-1.5); ALKALINE PHOSPHATASE 68 IU/L (46-116); ANION GAP 6 (8-16); ASPARTATE AMINO TRANSFERASE 21 U/L (10-37); BILIRUBIN,TOTAL 0.4 MG/DL (0.1-1.0); BLOOD UREA NITROGEN 7 MG/DL (7-18); BUN/CREATININE RATIO 10.8 (6.6-38.0); CALCIUM 8.5 MG/DL (8.5-10.1); CHLORIDE 103 MMOL/L (99-107); CREATININE 0.65 MG/DL (0.40-0.90); GLUCOSE 109 MG/DL (70-104); SODIUM 137 MMOL/L (135-145); TOTAL CARBON DIOXIDE 28.3 MMOL/L (24-32); TOTAL PROTEIN 6.9 G/DL (6.4-8.2); eGFR > 90 ML/MIN
[2022-08-06 09:30] LABS: URINE HCG NEGATIVE (NEG)
[2022-08-06 09:33] LABS: CLARITY,URINE CLOUDY (Clear); COLOR,URINE YELLOW (Yellow); GLUCOSE, URINE NEGATIVE (Neg); KETONES,URINE NEGATIVE (Neg); LEUKOCYTE ESTERASE ,URINE NEGATIVE (Neg); NITRITES, URINE POSITIVE (Neg); OCCULT BLOOD,URINE NEGATIVE (Neg); PROTEIN,URINE NEGATIVE (Neg); UROBILINOGEN,URINE 0.2 E.U/dL (0.2-1.0)
[2022-08-06 09:38] LABS: UA COLLECTION TYPE CLN CATCH MIDSTREAM
[2022-08-06 09:39] LABS: BACTERIA,URINE 3+ /HPF (Neg); MUCUS STRANDS MODERATE /LPF (Neg); SQUAMOUS EPITHELIAL CELL,UR MANY /LPF (FEW)
[2022-08-06 09:40] LABS: HYALINE CASTS 0-3 /LPF (NEGATIVE); RBC,URINE 0-2 /HPF (0-2)
[2022-08-06] MEDS ORDERED: clobetasol propionate ointment 15gm TP STA (10:09)
[2022-08-06] MEDS ORDERED: nitrofuran monohydrate/nitrofuran macrocrysal 100 MG (MacroBID) capsule PO ONE (10:10)
[2022-08-06] MEDS ORDERED: NITR100C6 PO (10:12)
== END 2022-08-06 10:34 | disposition home or self-care (01) ==
LOC: ER 05:56
DX: R21 Rash and other nonspecific skin eruption (principal); N39.0 Urinary tract infection, site not specified; F12.10 Cannabis abuse, uncomplicated; F15.10 Other stimulant abuse, uncomplicated; Z88.1 Allergy status to other antibiotic agents; Z88.5 Allergy status to narcotic agent; Z79.899 Other long term (current) drug therapy; Z79.1 Long term (current) use of non-steroidal anti-inflammatories (NSAID); Z79.2 Long term (current) use of antibiotics
CPT/HCPCS: 36415; 80053; 81001; 81025; 83605; 83735; 84145; 85025; 99284; Q0163

== ENCOUNTER 2023-04-03 14:50 | Emergency (ER) | payer MEDICAID ==
[~2023-04-03] VITALS: Ht 172.7 cm; Wt 70.0 kg
[~2023-04-03 14:50] MED LIST changes: +CLIN-214 PO; -CLIN150C8 PO; +NITR100C6 PO
[2023-04-03 15:05] VITALS: BP 121/87; PULSE 115; RESP 18; TEMP 99; O2SAT 98
[2023-04-03 16:59] LABS: BASOPHILS # (AUTO) 0.1 X10'3 (0-0.2); BASOPHILS % (AUTO) 0.4 % (0-1); EOSINOPHILS % (AUTO) 0.3 % (0-6); HEMATOCRIT 43.9 % (35.0-45.0); HEMOGLOBIN 14.7 g/dl (12.0-16.0); LYMPHOCYTES # (AUTO) 1.2 X10'3 (1.1-4.8); LYMPHOCYTES % (AUTO) 8.1 % (21-51); MEAN CORPUSCULAR HGB CONC 33.5 g/dL (33.0-36.5); MEAN CORPUSCULAR VOLUME 89.4 FL (78-98); MEAN PLATELET VOLUME 7.7 FL (7.4-10.4); MONOCYTES # (AUTO) 0.8 X10'3 (0-0.9); MONOCYTES % (AUTO) 5.6 % (2-12); NEUTROPHILS # (AUTO) 12.6 X10'3 (1.8-7.7); NEUTROPHILS % (AUTO) 85.6 % (42-75); PLATELET COUNT 338 X10'3 (140-440); RED CELL DISTRIBUTION WIDTH 14.3 % (11.5-14.5); WHITE BLOOD COUNT 14.7 X10'3 (4.5-11.0)
[2023-04-03 17:11] LABS: BILIRUBIN,URINE NEGATIVE (Neg); CLARITY,URINE CLOUDY (Clear); COLOR,URINE YELLOW (Yellow); GLUCOSE, URINE NEGATIVE (Neg); KETONES,URINE NEGATIVE (Neg); LEUKOCYTE ESTERASE ,URINE MODERATE (Neg); NITRITES, URINE POSITIVE (Neg); OCCULT BLOOD,URINE SMALL (Neg); PROTEIN,URINE 100 mg/dl (Neg); UROBILINOGEN,URINE 0.2 E.U/dL (0.2-1.0)
[2023-04-03 17:13] LABS: ALANINE AMINOTRANSFERASE 22 U/L (12-78); ALBUMIN 3.8 G/DL (3.4-5.0); ALKALINE PHOSPHATASE 95 IU/L (46-116); AMYLASE 25 U/L (25-115); ANION GAP 7 (8-16); ASPARTATE AMINO TRANSFERASE 10 U/L (10-37); BILIRUBIN,TOTAL 0.8 MG/DL (0.1-1.0); BLOOD UREA NITROGEN 9 MG/DL (7-18); BUN/CREATININE RATIO 9.6 (10.0-20.0); CHLORIDE 97 MMOL/L (99-107); CREATININE 0.94 MG/DL (0.40-0.90); GLUCOSE 114 MG/DL (70-104); POTASSIUM 3.9 MMOL/L (3.5-5.1); SODIUM 132 MMOL/L (135-145); TOTAL CARBON DIOXIDE 27.6 MMOL/L (24-32); TOTAL PROTEIN 7.8 G/DL (6.4-8.2); eCRCL 75 ML/MIN; eGFR 64 ML/MIN
[2023-04-03 17:14] LABS: LIPASE 12 U/L (16-77)
[2023-04-03 17:17] LABS: UA COLLECTION TYPE CLN CATCH MIDSTREAM
[2023-04-03 17:18] LABS: SQUAMOUS EPITHELIAL CELL,UR MODERATE /LPF (FEW); WBC,URINE TNTC /HPF (0-4)
[2023-04-03 17:19] LABS: BACTERIA,URINE 1+ /HPF (Neg)
[2023-04-03 17:20] LABS: TRANSITIONAL EPI CELLS,URINE MODERATE /HPF; WBC CLUMPS,URINE MODERATE /HPF (NEGATIVE)
--- NOTE | 2023-04-03 19:09 | NUR ---
Attempted to move patient from room 18 to [facility] and explained to patient that there was not a nurse assigned to that section to monitor her. Patient became frustrated. I attempted to educate patient on the way in which the side rooms were utilized in this ER which is for the MD to exam the patient only. Patient stormed out and stated "thats fine, when i at home from sepsis I will make sure my daughter knows to norah you and this hospital". I then tried to acknowledge patient frustration but was unsuccessful.
[2023-04-03] MEDS ORDERED: morphine 4 MG/ML inj SYRINge IV ONE (19:20)
[2023-04-03] MEDS ORDERED: acetaminophen 325mg tablet PO ONE (19:20)
[2023-04-03] MEDS ORDERED: normal saline 1000ML IV soln IVB ONE (19:20)
[2023-04-03] MEDS ORDERED: ondansetron/PF 4mg/2ml inj IV ONE (19:20)
[2023-04-03] MEDS ORDERED: CefTRIAXone 2gm/D5W 50ml BAG 50 ML IV ONE (19:25)
[2023-04-03 19:36] LABS: ETHANOL < 10 MG/DL (<10)
== END 2023-04-03 20:04 | disposition left against medical advice (07) ==
LOC: ER 14:51
DX: N10 Acute pyelonephritis (principal); F12.10 Cannabis abuse, uncomplicated; F15.10 Other stimulant abuse, uncomplicated; Z88.1 Allergy status to other antibiotic agents; Z88.8 Allergy status to other drugs, medicaments and biological substances; Z79.899 Other long term (current) drug therapy
CPT/HCPCS: 36415; 71045; 80053; 80320; 81001; 82150; 83690; 84145; 85025; 87040; 87077; 87088; 87186; 99284

== ENCOUNTER 2024-03-31 23:15 | Inpatient (IN) | payer MEDICAID ==
[~2024-03-31] VITALS: Ht 172.7 cm; Wt 84.0 kg
[~2024-03-31 23:15] MED LIST changes: +ONDA-245 PO; -ONDA8TAB13 PO
[2024-03-31 23:57] LABS: ALBUMIN 3.8 G/DL (3.4-5.0); ANION GAP 7 (8-16); BLOOD UREA NITROGEN 9 MG/DL (7-18); BUN/CREATININE RATIO 11.1 (10.0-20.0); CALCIUM 8.6 MG/DL (8.5-10.1); CHLORIDE 101 MMOL/L (99-107); CREATININE 0.81 MG/DL (0.40-0.90); GLUCOSE 101 MG/DL (70-104); POTASSIUM 3.3 MMOL/L (3.5-5.1); SODIUM 136 MMOL/L (135-145); TOTAL CARBON DIOXIDE 27.8 MMOL/L (24-32); eCRCL 87 ML/MIN; eGFR 76 ML/MIN
[2024-03-31 23:57] LABS: URINE HCG NEGATIVE (NEG)
[2024-03-31 23:58] LABS: BASOPHILS # (AUTO) 0.1 X10'3 (0-0.2); BASOPHILS % (AUTO) 0.9 % (0-1); EOSINOPHILS # (AUTO) 0.1 X10'3 (0-0.9); EOSINOPHILS % (AUTO) 1.4 % (0-6); HEMATOCRIT 43.3 % (35.0-45.0); HEMOGLOBIN 14.5 g/dl (12.0-16.0); LYMPHOCYTES # (AUTO) 2.3 X10'3 (1.1-4.8); LYMPHOCYTES % (AUTO) 28.7 % (21-51); MEAN CORPUSCULAR HEMOGLOBIN 29.8 PG (27.0-31.0); MEAN CORPUSCULAR HGB CONC 33.5 g/dL (33.0-36.5); MEAN PLATELET VOLUME 8.1 FL (7.4-10.4); MONOCYTES # (AUTO) 0.3 X10'3 (0-0.9); MONOCYTES % (AUTO) 4.2 % (2-12); NEUTROPHILS # (AUTO) 5.1 X10'3 (1.8-7.7); NEUTROPHILS % (AUTO) 64.8 % (42-75); PLATELET COUNT 322 X10'3 (140-440); RED BLOOD COUNT 4.86 X10'6 (4.20-5.60); WHITE BLOOD COUNT 7.9 X10'3 (4.5-11.0)
[2024-04-01 00:05] LABS: URINE AMPHETAMINE SCREEN POSITIVE (Neg); URINE BARBITUATE SCREEN NEGATIVE (Neg); URINE BENZODIAZEPINES SCREEN NEGATIVE (Neg); URINE CANNABINOID SCREEN POSITIVE (Neg); URINE COCAINE SCREEN NEGATIVE (Neg); URINE METHADONE SCREEN NEGATIVE (Neg); URINE OPIATE SCREEN NEGATIVE (Neg); URINE PHENCYCLIDINE SCREEN NEGATIVE (Neg)
[2024-04-01 00:20] LABS: BILIRUBIN,URINE NEGATIVE (Neg); CLARITY,URINE CLEAR (Clear); COLOR,URINE YELLOW (Yellow); GLUCOSE, URINE NEGATIVE (Neg); KETONES,URINE NEGATIVE (Neg); LEUKOCYTE ESTERASE ,URINE NEGATIVE (Neg); NITRITES, URINE NEGATIVE (Neg); OCCULT BLOOD,URINE NEGATIVE (Neg); PROTEIN,URINE NEGATIVE (Neg); UROBILINOGEN,URINE 0.2 E.U/dL (0.2-1.0)
[2024-04-01 00:21] LABS: UA COLLECTION TYPE NON-SPECIFIED
[2024-04-01] MEDS ORDERED: PERFLUTREN PROTEIN-A MICROSPHR (Optison) 0.22 MG/ML 3ML VIAL IV PRN (01:25)
[2024-04-01] MEDS ORDERED: ondansetron/PF 4mg/2ml inj IV PRN (01:25)
[2024-04-01 01:54] LABS: HEMOGLOBIN A1C 5.6 % (4.5-6.2)
[2024-04-01] MEDS: nicotine 14mg patch - 24hr TD ONE (02:34)
[2024-04-01] MEDS: aspirin 325mg tablet, delayed-release (Ecotrin) PO ONE (02:35)
[2024-04-01] MEDS: clopidogrel 75mg tablet PO ONE (02:35)
[2024-04-01] MEDS: atorvastatin 20mg tablet PO SCH (02:36)
[2024-04-01] MEDS: normal saline 1000ml 1,000 ML IV SCH (02:37)
[2024-04-01] MEDS: acetaminophen 325mg tablet PO PRN (08:00)
[2024-04-01] MEDS: enoxaparin 40mg/0.4ml syringe SUBCUT SCH (08:01)
[2024-04-01] MEDS ORDERED: acetaminophen 325mg tablet PO PRN (14:00)
[2024-04-01] MEDS ORDERED: HYDROcodone/acetaminophen 5mg/325mg tablet PO PRN (14:00)
[2024-04-01] MEDS: HYDROcodone/acetaminophen 10/325mg tab PO PRN (14:06)
[2024-04-01 19:50] VITALS: BP 134/84; PULSE 75; RESP 15; TEMP 98.9; O2SAT 95
[2024-04-01 20:00] VITALS: RESP 15; O2SAT 95
[2024-04-01] MEDS ORDERED: magnesium sulf-water 2g/50mL 50 ML IV PRN (21:55)
[2024-04-01] MEDS ORDERED: magnesium sulf-water 4G/100mL 100 ML IV PRN (21:55)
[2024-04-01] MEDS ORDERED: potassium Cl 40MEQ/1/2NS 520ml 520 ML IV PRN (21:55)
[2024-04-01] MEDS ORDERED: magnesium Cl slow-release 64mg tablet PO PRN (21:55)
[2024-04-01] MEDS ORDERED: potassium Cl 20 mEq SR tablet PO PRN (21:55)
[2024-04-01 22:00] VITALS: BP 110/68; PULSE 74; RESP 16; TEMP 97.6; O2SAT 98
[2024-04-01] MEDS: potassium Cl 20 mEq SR tablet PO PRN (22:11)
[2024-04-02 02:00] VITALS: BP 116/79; PULSE 73; RESP 15; TEMP 98.7; O2SAT 97
[2024-04-02 06:00] VITALS: BP 124/75; PULSE 78; RESP 19; TEMP 97; O2SAT 98
[2024-04-02 06:36] LABS: BASOPHILS % (AUTO) 0.4 % (0-1); EOSINOPHILS # (AUTO) 0.1 X10'3 (0-0.9); EOSINOPHILS % (AUTO) 2.3 % (0-6); HEMOGLOBIN 14.3 g/dl (12.0-16.0); LYMPHOCYTES # (AUTO) 2.6 X10'3 (1.1-4.8); LYMPHOCYTES % (AUTO) 40.2 % (21-51); MEAN CORPUSCULAR HEMOGLOBIN 29.3 PG (27.0-31.0); MEAN CORPUSCULAR HGB CONC 32.5 g/dL (33.0-36.5); MONOCYTES # (AUTO) 0.4 X10'3 (0-0.9); MONOCYTES % (AUTO) 5.7 % (2-12); NEUTROPHILS # (AUTO) 3.3 X10'3 (1.8-7.7); NEUTROPHILS % (AUTO) 51.4 % (42-75); PLATELET COUNT 288 X10'3 (140-440); RED BLOOD COUNT 4.88 X10'6 (4.20-5.60); RED CELL DISTRIBUTION WIDTH 13.9 % (11.5-14.5); WHITE BLOOD COUNT 6.3 X10'3 (4.5-11.0)
[2024-04-02 07:05] LABS: ANION GAP 7 (8-16); BLOOD UREA NITROGEN 11 MG/DL (7-18); BUN/CREATININE RATIO 13.8 (10.0-20.0); CALCIUM 8.2 MG/DL (8.5-10.1); CHLORIDE 105 MMOL/L (99-107); CHOLESTEROL 176 MG/DL (0-200); GLUCOSE 114 MG/DL (70-104); HDL CHOLESTEROL 58 MG/DL (35-60); LDL CHOLESTEROL 90 MG/DL (50-100); MAGNESIUM 2.2 MG/DL (1.5-2.4); POTASSIUM 3.7 MMOL/L (3.5-5.1); SODIUM 137 MMOL/L (135-145); TOTAL CARBON DIOXIDE 25.5 MMOL/L (24-32); TRIGLYCERIDES 217 MG/DL (20-135); eCRCL 88 ML/MIN; eGFR 77 ML/MIN
[2024-04-02] MEDS: K and/or MAG REPLACEMENT MC SCH (08:00)
[2024-04-02 10:00] VITALS: BP 117/76; PULSE 85; RESP 13; TEMP 97.7; O2SAT 97
[2024-04-02] MEDS ORDERED: butalbital 50MG/acetaminophen 325MG/caffeine 40MG (Fioricet) CAPSULE PO STA (10:51)
[2024-04-02] MEDS: BUTALB PO STA (11:41)
[2024-04-02] MEDS: CAFFEINE PO STA (11:41)
[2024-04-02] MEDS: ACETAMINOPHEN PO STA (11:41)
[2024-04-02] MEDS ORDERED: BUTA-245 PO (13:17)
[2024-04-02] MEDS ORDERED: SENN-294 PO (15:14)
[2024-04-02] MEDS: ketorolac trometh 15mg/ml vial 15 MG/ML ML IV STA (15:30)
[2024-04-02] MEDS: sennosides/docusate sodium tablet PO ONE (15:30)
[2024-04-02] MEDS ORDERED: sennosides/docusate sodium tablet PO SCH (20:00)
== END 2024-04-02 15:45 | disposition home or self-care (01) | DRG 47 ==
LOC: ER 23:15 → ED HOLD 04-01 01:30 → EDBEDREQ 04-01 02:35 → ORTHO 4S 04-01 19:55
PROVIDERS: ADMIT Internal Medicine Sleep Medicine; ATTEND Nurse Practitioner Family
PROC: B3251ZZ Computerized Tomography (CT Scan) of Bilateral Common Carotid Arteries using Low Osmolar Contrast (ICD-10-PCS; principal; 2024-03-31)
PROC: B32G1ZZ Computerized Tomography (CT Scan) of Bilateral Vertebral Arteries using Low Osmolar Contrast (ICD-10-PCS; 2024-03-31)
PROC: B32R1ZZ Computerized Tomography (CT Scan) of Intracranial Arteries using Low Osmolar Contrast (ICD-10-PCS; 2024-03-31)
PROC: B3281ZZ Computerized Tomography (CT Scan) of Bilateral Internal Carotid Arteries using Low Osmolar Contrast (ICD-10-PCS; 2024-03-31)
DX: G45.9 Transient cerebral ischemic attack, unspecified (principal); E87.6 Hypokalemia; I10 Essential (primary) hypertension; I67.848 Other cerebrovascular vasospasm and vasoconstriction; G43.909 Migraine, unspecified, not intractable, without status migrainosus; K59.00 Constipation, unspecified; F15.10 Other stimulant abuse, uncomplicated; Z79.899 Other long term (current) drug therapy; Z88.1 Allergy status to other antibiotic agents; Z88.8 Allergy status to other drugs, medicaments and biological substances; Z85.41 Personal history of malignant neoplasm of cervix uteri; Z83.3 Family history of diabetes mellitus
CPT/HCPCS: 36415; 70450; 70496; 70498; 70551; 80048; 80061; 80305; 81003; 81025; 83036; 83735; 85025; 87081; 92508; 92616; 93005; 93306; 97116; 97161; 97530; 99285; G0378; J1650; J1885; J7030

== ENCOUNTER 2024-07-07 15:34 | Emergency (ER) | payer MEDICAID ==
[~2024-07-07] VITALS: Ht 172.7 cm; Wt 82.2 kg
[~2024-07-07 15:34] MED LIST changes: +BUTA-245 PO; -CEPH-571 PO; -CLIN-214 PO; -CLIN300C3 PO; -HYDR-4383 PO; -IBUP-1986 PO; -NITR100C6 PO; -PER10325T PO; +SENN-294 PO
[2024-07-07 15:36] VITALS: TEMP 98.6
[2024-07-07 16:16] VITALS: BP 149/109; PULSE 121; RESP 18; O2SAT 98
== END 2024-07-07 18:12 | disposition left against medical advice (07) ==
LOC: ER 15:35
DX: R68.84 Jaw pain (principal); Z53.21 Procedure and treatment not carried out due to patient leaving prior to being seen by health care provider; Z88.8 Allergy status to other drugs, medicaments and biological substances

== ENCOUNTER 2024-09-10 01:12 | Emergency (ER) | payer MEDICAID ==
[~2024-09-10] VITALS: Ht 172.7 cm; Wt 77.7 kg
[2024-09-10 01:13] VITALS: BP 173/107; PULSE 86; RESP 18; O2SAT 99
[2024-09-10 02:30] VITALS: TEMP 98.5
== END 2024-09-10 02:31 | disposition home or self-care (01) ==
LOC: ER 01:13
DX: R23.8 Other skin changes (principal); H54.7 Unspecified visual loss; F12.90 Cannabis use, unspecified, uncomplicated; F15.90 Other stimulant use, unspecified, uncomplicated; Z88.8 Allergy status to other drugs, medicaments and biological substances; Z85.41 Personal history of malignant neoplasm of cervix uteri; Z79.899 Other long term (current) drug therapy
CPT/HCPCS: 99281

== ENCOUNTER 2024-12-07 23:18 | Emergency (ER) | payer MEDICAID ==
[~2024-12-07] VITALS: Ht 172.7 cm; Wt 72.7 kg
[2024-12-07] MEDS: LIDOcaine 1% W/epiNEPHrine 1:100,000 20ml vial SQ STA (23:43)
--- NOTE | 2024-12-08 00:32 | RADIOLOGY REPORT ---
CLINICAL INDICATION: left knee pain TECHNIQUE: DI KNEE LIMITED (AP/LAT) Comparison: None FINDINGS/IMPRESSION: : There is no evidence of acute fracture or dislocation. Soft tissues are unremarkable.
--- NOTE | 2024-12-08 00:33 | RADIOLOGY REPORT ---
CLINICAL INDICATION: right ankle pain TECHNIQUE: DI ANKLE,LIMITED (AP/LAT) Comparison: None FINDINGS/IMPRESSION: : There is no evidence of acute fracture or dislocation. Mild degenerative osteophytic change within the anterior tibiotalar joint. Plantar calcaneal enthesop athy. Soft tissues are unremarkable.
--- NOTE | 2024-12-08 00:35 | Physician Documentation ---
History of Present Illness ~ Chief Complaint: Laceration Stated Complaint: KNEE LACK Time Seen by MD: 00:34 Primary Medical Doctor: [facility] HPI Patient presents to the emergency room after sustaining a laceration to just below her left knee after climbing down a ladder. She also reports that she rolled her ankle. No other injuries Tetanus Within 5 Years: No Medication Reconciliation Allergies: Coded Allergies: bacitracin (Verified Allergy, Unknown, 09/10/24) neomycin (Verified Allergy, Unknown, 09/10/24) poison oak extract (Unverified Allergy, Unknown, 09/10/24) polymyxin B (Verified Allergy, Unknown, 09/10/24) pramoxine (Verified Allergy, Unknown, 09/10/24) Uncoded Allergies: NEOSPORIN (Allergy, Unknown, 01/07/15) Scheduled Albuterol Sulfate (Proventil Hfa), 2 PUFFS INH Q6H Dexamethasone (Decadron), 1 TAB PO Q12H Dexamethasone (Decadron), 1 TAB PO ONCE Diclofenac Sodium (Voltaren Arthritis Pain), 1 APPLIC TOP TID Ondansetron Hcl (Zofran), 1 TAB PO Q6H Ondansetron Hcl (Zofran), 1 TAB PO Q6H Sennosides/Docusate Sodium (Senna-S 8.6-50 mg Tablet), 2 TAB PO HS Scheduled PRN Butalb/Acetaminophen/Caffeine (Fioricet Tab), 1 TAB PO QDAY PRN PRN for pain Clonazepam (Clonazepam), 1 TAB PO TID PRN for for anxiety/agitation, (Reported) Ibuprofen (Ibuprofen), 600 MG PO TID@0830,1230,1730 PRN for pain Ondansetron 8mg ODT (Ondansetron Odt), 1 TAB PO TID PRN for nausea/vomiting Past Medical History Past Medical History: *HEMATOLOGY*, *DERMATOLOGY*, Cellulitis, Cervical Cancer/ Dysplasia Past Surgical History: orthopedic surgeries, other Other Past Surgical History: ablation Patient History: Brother suicide Brother suicide 25 age Father 42/46 pneumonia Grandfather back and knee problems Grandmotehr copd 62 age she Mom depression and most of family depressed. Mom type 2 dm around 49 dx as Alcohol Use: None Drug Use: marijuana, methamphetamine Lives with: Spouse Lives In: Home Occupation: employed Review of Systems ROS All review of systems negative except as per HPI Physical Exam Vital Signs: Temperature: 97.5, Source: Temporal, Heart Rate: 93, Respiratory Rate: 16, BP: 118/79, Pulse Oximetry: 98, Weight: 72.730 Oxygen Flow Rate: 0 Physical Exam General: Patient is awake, alert, oriented x4 in no acute distress Head: Normocephalic and atraumatic. Eyes: Conjunctival normal. EOMI. PERRL. ENT: Mucous membranes moist. Neck: Supple, trachea is midline. Chest: Clear to auscultation bilaterally without rales, rhonchi, or wheezes. There is no accessory muscle use or retractions. Extremities: 3 cm full-thickness laceration just below patient's left patella. No appreciable swelling ecchymosis or deformity of ankle Procedures Procedure Note Laceration repair: Status post informed verbal consent patient was sterilely cleaned and draped. She was anesthetized with 1% lidocaine with epinephrine to a total of 1 cc. 3-[address] three simple interrupted sutures to approximate wound edges of her laceration below her left knee. Bandage applied. Patient tolerated procedure well without complication. Total time of procedure 10 minutes Progress Results/Orders Results/Orders Completed Orders - AUSTIN GTZ MD Ondansetron Disint. Tablet (Zofran Odt T (12/08/24 00:40) Hydrocodone/Apap 5/325mg Tab (Terry 5/32 (12/08/24 00:40) Medications Received in ER Medications (Trade) Dose Ordered Sig/Abdoul Route PRN Reason Start Time Stop Time Status Last Admin Dose Admin (Zofran ODT tablet) 4 mg ONCE ONCE PO 12/08/24 00:40 12/08/24 00:41 DC 12/08/24 00:54 4 MG (Terry 5/325mg tablet) 2 tab ONCE ONCE PO 12/08/24 00:40 12/08/24 00:41 DC 12/08/24 00:54 2 TAB Vital Signs 12/07/24 23:41 Temp 97.5 Pulse 93 Resp 16 B/P (MAP) 118/79 Pulse Ox 98 O2 Flow Rate 0 Medical Decision Making Findings Patient is status post laceration repair. Wound was thoroughly irrigated before suturing. Wound care discussed as well as the need to have sutures removed. X- ray is reassuring for no fractures Departure Disposition: 01 HOME / SELF CARE / HOMELESS Impression: Primary Impression: Laceration Condition: Stable Discharge Instructions: Laceration Care, Adult, [id number] Additional Instructions: Clean daily with soap and water and keep covered with a Band-Aid. Have sutures removed in 7-10 days Referrals: NO PRIMARY CARE PROVIDER (PCP) Signature Scribe Signature: No scribe Attestation: The note accurately reflects work and decisions made by me.Austin Gtz MD 12/08/24 01:21 AUSTIN GTZ MD Dec 08, 2024 00:35
[2024-12-08] MEDS: HYDROcodone/acetaminophen 5mg/325mg tablet PO ONE (00:54)
[2024-12-08] MEDS: ondansetron 4mg rapidly disintigrating tab PO ONE (00:54)
[2024-12-08 01:47] VITALS: BP 120/80; PULSE 90; RESP 18; TEMP 98.6; O2SAT 99
== END 2024-12-08 01:49 | disposition home or self-care (01) ==
LOC: ER 23:19
DX: S81.012A Laceration without foreign body, left knee, initial encounter (principal); X50.1XXA Overexertion from prolonged static or awkward postures, initial encounter; J44.9 Chronic obstructive pulmonary disease, unspecified; Z85.41 Personal history of malignant neoplasm of cervix uteri; Z88.8 Allergy status to other drugs, medicaments and biological substances; Z79.899 Other long term (current) drug therapy; Y93.39 Activity, other involving climbing, rappelling and jumping off; Y92.89 Other specified places as the place of occurrence of the external cause; Y99.8 Other external cause status
CPT/HCPCS: 12002; 73560; 73600; 99284; A6222